=== PATIENT | male | born 1935 | race Caucasian/White ===

== ENCOUNTER 2020-12-02 13:46 | Emergency (ER) | payer MEDICARE ==
[2020-12-02] MEDS ORDERED: HYDROcodone/Acetaminophen 5/325 mg Tablet ONE (15:16)
[2020-12-02] MEDS ORDERED: Ketorolac Tromethamine 30 MG/ML VIAL ONE (15:16)
[2020-12-02] MEDS ORDERED: Dexamethasone 10 MG/ML VIAL ONE (16:35)
== END 2020-12-02 16:50 | disposition home or self-care (01) ==
LOC: ERS 13:46
DX: M54.5 Low back pain (principal); G89.29 Other chronic pain; K59.00 Constipation, unspecified; Z79.01 Long term (current) use of anticoagulants; Z79.899 Other long term (current) drug therapy
CPT/HCPCS: 72131; 96372; J1100; J1885